=== PATIENT | female | born 1980 | race Two or more races ===

== ENCOUNTER 2020-05-04 10:20 | Emergency (ER) | payer OTHER ==
[~2020-05-04] VITALS: Ht 149.9 cm; Wt 70.3 kg
[~2020-05-04 10:20] MED LIST: CODE1TAB37 PO; DOCUSATE SODIU100 MG PO; DOLOGESIC CAPLE1 TAB PO; FOLIC ACID0.4 MG PO; Mylicon 125MG PO
[2020-05-04] MEDS ORDERED: JANUMET XR 50-1 EAC1 PO (10:38)
[2020-05-04] MEDS ORDERED: B12 ACTIVE1000 MCG PO (10:38)
[2020-05-04] MEDS ORDERED: VITAMIN D-40010 MCG PO (10:39)
[2020-05-04] MEDS ORDERED: LANTUS SOL100 UNIT/1 SQ (10:40)
[2020-05-04] MEDS ORDERED: HUMULIN N100 UNIT/2 IJ (10:40)
== END 2020-05-04 15:56 | disposition home or self-care (01) ==
LOC: ER 10:20
DX: R10.32 Left lower quadrant pain (principal)

== ENCOUNTER 2023-06-05 07:45 | Inpatient (IN) | payer OTHER ==
[~2023-06-05] VITALS: Ht 149.9 cm; Wt 69.4 kg
[~2023-06-05 07:45] MED LIST changes: +B12 ACTIVE1000 MCG PO; +HUMULIN N100 UNIT/2 IJ; +JANUMET XR 50-1 EAC1 PO; +LANTUS SOL100 UNIT/1 SQ; +VITAMIN D-40010 MCG PO
[2023-06-05 09:46] LABS: HEMATOCRIT 41.8 % (36.0-45.00); HEMOGLOBIN 14.4 g/dL (12.0-15.00); MEAN CELL VOLUME 88.6 fL (80.00-100.00); MEAN CORPUSCULAR HEMOGLOBIN 30.5 pg (27.00-32.0); MEAN CORPUSCULAR HGB CONC 34.4 g/dl (32.0-36.0); PLATELET COUNT 396 K/uL (150-450); RED BLOOD COUNT 4.72 M/uL (4.00-6.00); RED CELL DISTRIBUTION WIDTH 13.4 % (11.5-14.5)
[2023-06-05] MEDS ORDERED: LEVOTHYROXINE25 MCG PO (09:46)
[2023-06-05] MEDS ORDERED: PROZAC20 MG PO (09:46)
[2023-06-05] MEDS ORDERED: VISTARIL25 MG PO (09:47)
[2023-06-05 09:52] LABS: URINE APPEARANCE Cloudy; URINE BILIRRUBIN Negative (NEGATIVE); URINE BLOOD Negative; URINE COLOR Yellow; URINE LEUKOCYTE Negative; URINE NITRATE Negative; URINE PROTEIN Negative (NEGATIVE)
[2023-06-05 09:57] LABS: URINE BACTERIA 6176.4 uL (0.0-1933); URINE RBC 11.4 uL (0.0-20.8); URINE WBC 53.4 uL (0.0-23.2)
[2023-06-05 10:05] LABS: INR < 0.93; PARTIAL THROMBOPLASTIN TIME 27.6 SECONDS (22.0-34.0); PROTHROMBIN TIME 9.8 SECONDS (9.0-11.5)
[2023-06-05 10:11] LABS: URINE EPITHELIAL CELLS > 201.7 uL (0.0-38.8); URINE GLUCOSE >=1000 MG/DL (NEGATIVE)
[2023-06-05 10:24] LABS: BILIRUBIN TOTAL 0.29 mg/dL (0.3-1.2); CALCIUM 9.9 mg/dL (8.5-10.1); CREATININE SERUM 0.67 mg/dL (0.55-1.02); GFR 95.61; POTASSIUM 4.63 mEq/L (3.5-5.1)
[2023-06-09 17:05] LABS: HEMATOCRIT 41.2 % (36.0-45.00); MEAN CELL VOLUME 87.2 fL (80.00-100.00); MEAN CORPUSCULAR HEMOGLOBIN 29.6 pg (27.00-32.0); MEAN CORPUSCULAR HGB CONC 33.9 g/dl (32.0-36.0); PLATELET COUNT 356 K/uL (150-450); RED BLOOD COUNT 4.73 M/uL (4.00-6.00); RED CELL DISTRIBUTION WIDTH 13.6 % (11.5-14.5)
[2023-06-11] MEDS ORDERED: PAIN RELIEVER500 M2 PO (06:25)
[2023-06-11] MEDS ORDERED: POLY119PG PO (06:25)
[2023-06-11] MEDS ORDERED: ACETAMINOPHEN-1 EAC2 PO (06:25)
== END 2023-06-11 09:29 | disposition home or self-care (01) | DRG 743 ==
LOC: OB/GYN 06-09 05:45 → O/R 06-09 05:45 → OB/GYN 06-09 07:45 → SURH 06-09 17:09 → OB/GYN 06-09 17:10
PROVIDERS: ADMIT Obstetrics & Gynecology; ATTEND Obstetrics & Gynecology
PROC: 0UT00ZZ Resection of Right Ovary, Open Approach (ICD-10-PCS; 2023-06-09)
PROC: 0UT50ZZ Resection of Right Fallopian Tube, Open Approach (ICD-10-PCS; principal; 2023-06-09 09:30)
DX: N83.01 Follicular cyst of right ovary (principal); Z20.822 Contact with and (suspected) exposure to COVID-19; E11.9 Type 2 diabetes mellitus without complications; R10.2 Pelvic and perineal pain

== ENCOUNTER 2023-06-20 14:48 | Inpatient (IN) | payer OTHER ==
[~2023-06-20] VITALS: Ht 149.9 cm; Wt 69.4 kg
[~2023-06-20 14:48] MED LIST changes: +ACETAMINOPHEN-1 EAC2 PO; +LEVOTHYROXINE25 MCG PO; +PAIN RELIEVER500 M2 PO; +POLY119PG PO; +PROZAC20 MG PO; +VISTARIL25 MG PO
[2023-06-20] MEDS ORDERED: HUMALOG100 UNIT/2 (16:30)
[2023-06-20] MEDS ORDERED: PROZAC20 MG (16:31)
[2023-06-20] MEDS ORDERED: TRAMADOL HCL50 MG (16:32)
[2023-06-20] MEDS ORDERED: VISTARIL50 MG/ML (16:32)
[2023-06-20] MEDS ORDERED: VISTARIL25 MG (16:32)
[2023-06-20 18:22] LABS: PH,URINE 5.5 (5.0-8.0); URINE APPEARANCE Turbid; URINE BILIRRUBIN Negative (NEGATIVE); URINE COLOR Yellow; URINE LEUKOCYTE Moderate; URINE NITRATE Negative; URINE PROTEIN Trace (NEGATIVE)
[2023-06-20 18:23] LABS: HEMATOCRIT 40.3 % (36.0-45.00); HEMOGLOBIN 13.7 g/dL (12.0-15.00); MEAN CELL VOLUME 86.9 fL (80.00-100.00); MEAN CORPUSCULAR HEMOGLOBIN 29.5 pg (27.00-32.0); PLATELET COUNT 596 K/uL (150-450); RED BLOOD COUNT 4.64 M/uL (4.00-6.00); RED CELL DISTRIBUTION WIDTH 13.4 % (11.5-14.5)
[2023-06-20 18:25] LABS: URINE RBC 29.7 uL (0.0-20.8); URINE WBC 556.1 uL (0.0-23.2)
[2023-06-20 18:37] LABS: INR 0.98; PARTIAL THROMBOPLASTIN TIME 30.4 SECONDS (22.0-34.0); PROTHROMBIN TIME 10.3 SECONDS (9.0-11.5)
[2023-06-20 18:43] LABS: URINE GLUCOSE 500 MG/DL (NEGATIVE)
[2023-06-20 18:44] LABS: URINE BACTERIA > 9821.5 uL (0.0-1933); URINE EPITHELIAL CELLS > 201.7 uL (0.0-38.8)
[2023-06-20 18:45] LABS: URINE BLOOD TRACE
[2023-06-20 18:51] LABS: ALBUMIN 3.9 gm/dL (3.4-5.0); BILIRUBIN TOTAL 0.22 mg/dL (0.3-1.2); CALCIUM 9.9 mg/dL (8.5-10.1); CREATININE SERUM 0.64 mg/dL (0.55-1.02); GFR 100.81; GLOBULINA 4.7 G/DL (2.4-3.5); POTASSIUM 4.24 mEq/L (3.5-5.1); TOTAL PROTEIN 8.6 gm/dL (6.4-8.2)
[2023-06-22 07:49] LABS: HEMATOCRIT 36.1 % (36.0-45.00); HEMOGLOBIN 12.2 g/dL (12.0-15.00); MEAN CORPUSCULAR HEMOGLOBIN 29.4 pg (27.00-32.0); MEAN CORPUSCULAR HGB CONC 33.8 g/dl (32.0-36.0); PLATELET COUNT 488 K/uL (150-450); RED BLOOD COUNT 4.16 M/uL (4.00-6.00); RED CELL DISTRIBUTION WIDTH 13.2 % (11.5-14.5)
[2023-06-22 09:07] LABS: ERYTHROCYTE SEDIMENTATION RATE 63 mm/hr
[2023-06-25 06:46] LABS: HEMOGLOBIN 12.4 g/dL (12.0-15.00); MEAN CELL VOLUME 88.2 fL (80.00-100.00); MEAN CORPUSCULAR HEMOGLOBIN 29.7 pg (27.00-32.0); MEAN CORPUSCULAR HGB CONC 33.6 g/dl (32.0-36.0); PLATELET COUNT 537 K/uL (150-450)
[2023-06-25 07:06] LABS: CALCIUM 9.2 mg/dL (8.5-10.1); CREATININE SERUM 0.54 mg/dL (0.55-1.02); GFR 122.64; POTASSIUM 4.58 mEq/L (3.5-5.1)
== END 2023-06-27 10:28 | disposition home or self-care (01) | DRG 921 ==
LOC: ER 14:48 → OB/GYN 22:35
PROVIDERS: General Practice; Internal Medicine; ADMIT Obstetrics & Gynecology; ATTEND Obstetrics & Gynecology
PROC: BW21YZZ Computerized Tomography (CT Scan) of Abdomen and Pelvis using Other Contrast (ICD-10-PCS; principal; 2023-06-20)
PROC: 0W9F30Z Drainage of Abdominal Wall with Drainage Device, Percutaneous Approach (ICD-10-PCS; 2023-06-23)
PROC: B54CZZZ Ultrasonography of Left Lower Extremity Veins (ICD-10-PCS; 2023-06-23)
DX: N99.842 Postprocedural seroma of a genitourinary system organ or structure following a genitourinary system procedure (principal); Z20.822 Contact with and (suspected) exposure to COVID-19